=== PATIENT | female | born 1995 | race African-American/Black ===

== ENCOUNTER 2023-12-29 15:47 | Emergency (ER) | payer OTHER ==
[~2023-12-29] VITALS: Ht 149.9 cm; Wt 45.4 kg
[2023-12-29 16:01] VITALS: BP 138/82; PULSE 114; RESP 16; TEMP 98.3; O2SAT 96
[2023-12-29 16:55] LABS: APPEARANCE,URINE CLEAR (CLEAR); BILIRUBIN,URINE NEGATIVE (NEGATIVE); BLOOD, URINE NEGATIVE (NEGATIVE); COLOR,URINE YELLOW (YELLOW); LEUKOCYTE ESTERASE ,URINE NEGATIVE (NEGATIVE); NITRITE, URINE NEGATIVE (NEGATIVE); PROTEIN,URINE NEGATIVE (NEGATIVE); UGLUCOSE NEGATIVE (NEGATIVE); UROBILINOGEN,URINE 0.2 EU/dL (0.2 - 1)
[2023-12-29 17:12] LABS: AMPHETAMINE, URINE NEGATIVE ng/ml (NEG <=1000); BARBITURATE, URINE NEGATIVE ng/ml (NEG <=200); BENZODIAZEPINE, URINE NEGATIVE ng/mL (NEG <=200); CANNABINOID, URINE POSITIVE ng/mL (NEG <=50); COCAINE, URINE NEGATIVE ng/mL (NEG <=300); OPIATE, URINE NEGATIVE ng/mL (NEG <=2000); PHENCYCLIDINE SCREEN,URINE NEGATIVE ng/mL (NEG <=25)
[2023-12-29] MEDS: NACL 0.9% 1,000 ML IV SCH (17:16)
[2023-12-29] MEDS: KETOROLAC 30 MG/ML VIAL IVP ONE (17:17)
[2023-12-29 17:21] LABS: BASOPHILS % (AUTO) 0.1 % (0.0-2.0); HEMOGLOBIN 12.9 g/dL (12.0-16.0); LYMPHOCYTES # (AUTO) 0.8 K/uL (2.5-16.5); MEAN CORPUSCULAR HEMOGLOBIN 29 pg (27-31); MEAN CORPUSCULAR HGB CONC 33 g/dL (33-37); MEAN CORPUSCULAR VOLUME 87.5 fL (80-94); MONOCYTES # (AUTO) 1.6 K/uL (0.8-1.0); MONOCYTES % (AUTO) 9.2 % (1.7-9.3); NEUTROPHILS # (AUTO) 14.5 K/uL (1.8-7.7); NEUTROPHILS % (AUTO) 86.1 % (42.2-75.2); PLATELET COUNT (AUTO) 196 K/uL (140-450); RED BLOOD CELL COUNT(AUTO) 4.46 MIL/uL (4.20-5.40); RED CELL DISTRIBUTION WIDTH 12.3 % (11.6-13.7); WHITE BLOOD COUNT (AUTO) 16.9 K/uL (4.8-10.8)
[2023-12-29 17:45] LABS: FLU A ANTIGEN negative (NEGATIVE); FLU B ANTIGEN NEGATIVE (NEGATIVE)
[2023-12-29 17:49] LABS: ANION GAP 16.3 (8-16); CALCIUM 9.4 mg/dL (8.5-10.1); CARBON DIOXIDE 24.3 mmol/L (21-32); POTASSIUM 4.6 mmol/L (3.5-5.1)
[2023-12-29] MEDS ORDERED: HYDROcodone/APAP 5/325 MG 1 TAB TAB PO ONE (17:50)
[2023-12-29 17:53] LABS: BILIRUBIN,DIRECT 0.2 mg/dL (0.0-0.3); TOTAL BILIRUBIN 0.9 mg/dL (0.0-1.0); TOTAL PROTEIN, SERUM 7.4 g/dL (6.4-8.2)
[2023-12-29 17:56] LABS: LYMPHOCYTES % (AUTO) 4.6 % (20.5-51.1)
[2023-12-29] MEDS ORDERED: cefTRIAXone 500 MG VIAL ONE (18:07)
[2023-12-29] MEDS ORDERED: IBUP-1842 PO (18:42)
[2023-12-29 19:10] VITALS: BP 131/84; PULSE 100; RESP 18; TEMP 98.5; O2SAT 100
== END 2023-12-29 19:10 | disposition home or self-care (01) ==
LOC: MED 15:47
DX: K04.7 Periapical abscess without sinus (principal); R00.0 Tachycardia, unspecified; Z20.822 Contact with and (suspected) exposure to COVID-19; Z79.899 Other long term (current) drug therapy
CPT/HCPCS: 36415; 71045; 80048; 80076; 80305; 81003; 81025; 83880; 84484; 85025; 85379; 85651; 86140; 87426; 87804; 93005; 96361; 96365; 96375; 99285; J0696; J1885; J7030